=== PATIENT | female | born 1990 | race African-American/Black ===

== ENCOUNTER 2020-06-19 16:32 | Outpatient (CLI) | payer OTHER, SELFPAY ==
--- NOTE | ~2020-06-19 | US_ITS ---
EXAMINATION: US OB <=14 wk fetus w TV DATE: 06/19/2020 17:08 INDICATION: Uncertain dates. TECHNIQUE: Real-time transabdominal and transvaginal pelvic ultrasound was performed. COMPARISON: None. FINDINGS: TRANSABDOMINAL ULTRASOUND: The uterus measures 10.2 x 4.7 x 5.9 cm. TRANSVAGINAL ULTRASOUND: There is a cyst in the endometrial complex with mean diameter of 1.2 cm, whi ch may be a gestational sac. No pole or yolk sac is visible. The right ovary measures 2.2 x 1.7 x 1.9 cm. The left ovary measures 2.8 x 2.1 x 2.1 cm. There is trace free fluid in the pelvis. IMPRESSION: 1. Cyst in the endometrial complex that may be a gestational sac with estimated gestational age of 5 weeks and 5 days +/- 4 days. The lack of a visible yolk sac would not be reassuring. Spontaneous abo rtion and ectopic are not excluded. Serial beta-hCGs are recommended. Reviewed, dictated and finalized at location A. ER AUTOMATIC IMPRESSION: 1. Cyst in the endometrial complex that may be a gestational sac with estimate d gestational age of 5 weeks and 5 days +/- 4 days. The lack of a visible yolk sac would not be reassuring. Spontaneous and ectopic are not excluded. Serial beta-hCGs are recommended.
== END 2020-06-19 16:33 | disposition home or self-care (01) ==
PROVIDERS: Visit Provider Obstetrics & Gynecology
DX: O36.70X0 Maternal care for viable fetus in abdominal pregnancy, unspecified trimester, not applicable or unspecified (principal); Z87.59 Personal history of other complications of pregnancy, childbirth and the puerperium; Z3A.01 Less than 8 weeks gestation of pregnancy
CPT/HCPCS: 76801; 76817

== ENCOUNTER 2020-06-21 14:18 | Outpatient (RCR) | payer OTHER, SELFPAY | END 2020-09-19 23:59 | disposition home or self-care (01) | LOC: ANHLAB 14:18 | PROVIDERS: Visit Provider Obstetrics & Gynecology | DX: N91.2 Amenorrhea, unspecified (principal) | CPT/HCPCS: 36415; 84702 ==

== ENCOUNTER 2020-06-23 14:08 | Outpatient (CLI) | payer OTHER, SELFPAY ==
--- NOTE | ~2020-06-23 | US_ITS ---
EXAMINATION: US OB <=14 wk fetus w TV DATE: 06/23/2020 15:07 INDICATION: Unspecified ectopic without intrauterine . TECHNIQUE: Real-time transabdominal and transvaginal pelvic ultrasound was performed. COMPARISON: None. FINDINGS: TRANSABDOMINAL ULTRASOUND: The uterus measures 7.9 x 5.3 x 5.0 cm. TRANSVAGINAL ULTRASOUND: There is a cyst in the endometrial complex with intradecidual sign with mean diameter of 1.5 cm, which may be a gestational sac with estimated gestational age of 6 weeks and 1 d ay. No yolk sac or pole is visualized. The right ovary measures 2.1 x 2.1 x 1.3 cm. The left ov margarita measures 4.6 x 2.5 x 2.4 cm. There is no free fluid in the pelvis. IMPRESSION: 1. Cysts in the endometrial complex that may be a gestational sac with estimated gestational age of 6 weeks and 1 day +/- 4 days. The lack of a visible yolk sac would not be reassuring. Spontaneous abo rtion and ectopic are not excluded. Serial beta-hCGs are recommended. Reviewed, dictated and finalized at location A. L ARMS REPAIRER IMPRESSION: 1. Cysts in the endometrial complex that may be a gestational sac with estimat ed gestational age of 6 weeks and 1 day +/- 4 days. The lack of a visible yolk sac would not be reassuring. Spontaneous and ectopic are not excluded. Serial beta-hCGs are recommended.
== END 2020-06-23 14:09 | disposition home or self-care (01) ==
PROVIDERS: Visit Provider Obstetrics & Gynecology
DX: O00.90 Unspecified ectopic pregnancy without intrauterine pregnancy (principal); Z3A.01 Less than 8 weeks gestation of pregnancy
CPT/HCPCS: 76801; 76817

== ENCOUNTER 2020-06-27 16:11 | Outpatient (RCR) | payer OTHER, SELFPAY ==
[2020-06-29 11:19] LABS: Progesterone 18.4 ng/mL (***)
== END 2020-09-25 23:59 | disposition home or self-care (01) ==
LOC: ANHLAB 16:11
PROVIDERS: Visit Provider Obstetrics & Gynecology
DX: Z34.90 Encounter for supervision of normal pregnancy, unspecified, unspecified trimester (principal); N91.2 Amenorrhea, unspecified
CPT/HCPCS: 36415; 84144; 84702; 86850; 86900; 86901

== ENCOUNTER 2020-07-03 14:38 | Outpatient (CLI) | payer OTHER, SELFPAY ==
--- NOTE | ~2020-07-03 | US_ITS ---
EXAMINATION: US OB <=14 wk fetus w TV DATE: 07/03/2020 15:17 INDICATION: Unspecified ectopic without intrauterine . TECHNIQUE: Real-time pelvic ultrasound utilizing both a transvaginal and transabdominal probe was pe rformed. The interpreting radiologist was not present for the study. COMPARISON: None. FINDINGS: The uterus measures 9.8 x 5.1 x 5.8 cm. There is an intrauterine gestational sac with double decidua sign but without evident yolk sac or pole. Nearly indiscernible thin echogenic internal septat ions within the gestational sac. Mean sac diameter measures 2.3 cm which would correlate with an antoine mated gestational age of 7 weeks and 1 days. 1.7 x 1.5 x 1.4 similar slightly hyperechoic uterine fib roid in the posterior fundus. The right ovary measures 2.0 x 1.7 x 1.5 cm. The left ovary measures 3.6 x 2.1 x 2.0 cm. 1.8 cm anech oic likely corpus luteum cyst in the left ovary. There are a few additional subcentimeter follicles i n both ovaries. Vascular flow is identified in both ovaries on color Doppler. No other adnexal masses edified to suggest ectopic . There is no free fluid in the pelvis. IMPRESSION: 1. Cystic fluid collection with double decidua sign suggesting a gestational sac, yolk sac or p ole within the endometrial canal. This would be consistent with a failed utilizing criteria of no embryo or heartbeat evident 7 days following ultrasound demonstrating a mean sac diameter of > =12 mm. Reviewed, dictated and finalized at location B. ITOMETRIST IMPRESSION: 1. Cystic fluid collection with double decidua sign suggesting a gestational sa c, yolk sac or pole within the endometrial canal. This would be consisten t with a failed utilizing criteria of no embryo or heartbeat evident 7 days following ultrasound demonstrating a mean sac diameter of >=12 mm.
== END 2020-07-03 14:39 | disposition home or self-care (01) ==
PROVIDERS: Visit Provider Obstetrics & Gynecology
DX: O00.90 Unspecified ectopic pregnancy without intrauterine pregnancy (principal); Z3A.00 Weeks of gestation of pregnancy not specified
CPT/HCPCS: 76801; 76817